=== PATIENT | female | born 1990 | race Caucasian/White ===

== ENCOUNTER 2017-01-06 18:11 | Emergency (ER) | payer MEDICAID ==
[2011-06-02 08:19] VITALS: BMI 29.2
== END 2017-01-06 19:58 | disposition home or self-care (01) ==
LOC: D.ER 18:11
DX: K04.7 Periapical abscess without sinus (principal); K08.89 Other specified disorders of teeth and supporting structures

== ENCOUNTER 2017-02-09 12:06 | Emergency (ER) | payer MEDICAID ==
[2011-06-02 08:19] VITALS: BMI 29.2
== END 2017-02-09 14:49 | disposition home or self-care (01) ==
LOC: D.ER 12:06
DX: K08.89 Other specified disorders of teeth and supporting structures (principal); J20.9 Acute bronchitis, unspecified

== ENCOUNTER 2017-09-26 19:22 | Emergency (ER) | payer MEDICAID ==
[~2017-09-26] VITALS: Ht 162.6 cm; Wt 54.1 kg
[2017-09-26 19:42] VITALS: BP 111/71; Ht 162.6 cm; Wt 54.1 kg
[2017-09-26] MEDS ORDERED: VOLTAREN75 MG PO (21:15)
[2017-09-26] MEDS ORDERED: CLEOCIN HCL300 MG PO (21:15)
== END 2017-09-26 22:00 | disposition home or self-care (01) ==
LOC: D.ER 19:22
DX: K04.7 Periapical abscess without sinus (principal)